=== PATIENT | male | born 1990 | race African-American/Black ===

== ENCOUNTER 2018-08-01 02:22 | Emergency (ER) | payer SELFPAY ==
[~2018-08-01] VITALS: Ht 175.3 cm; Wt 68.0 kg
[2018-08-01] MEDS ORDERED: IBUPROFEN 800MG TABLET PO ONE (04:45)
[2018-08-01 05:33] VITALS: BP 108/68
== END 2018-08-01 05:36 | disposition home or self-care (01) ==
LOC: ER 02:22
DX: K04.7 Periapical abscess without sinus (principal)
CPT/HCPCS: 99283